=== PATIENT | male | born 1995 | race Caucasian/White ===

== ENCOUNTER 2016-12-14 07:30 | Emergency (ER) | payer BC, OTHER ==
[~2016-12-14] VITALS: Wt 90.0 kg
[~2016-12-14 07:30] MED LIST: NEOM28OI TOP; NO MED; NO MEDS TAKEN
--- NOTE | 2016-12-14 08:47 | ERD ---
ER Documentation Chief Complaint Date/Time DATE: 12/14/16 TIME: 08:43 Chief Complaint CONFUSION PER FAMILY FOR THE PAST FEW MONTHS. NO TRAUMA. A&OX4. HPI This is a 21-year-old male presenting to the emergency room brought in by mother for on and off confusion and forgetfulness for the past 3 months. Patient and his mother states that the past few months he has been having unusual situations occur such as getting ready in the morning, taking a shower and then discussing with his mother that he needs to go take a shower even though he just took a shower. Patient states that he has been dozing off sometimes. Patient denies headache, vision changes, head trauma, nausea, vomiting, syncope. Denies SI or HI ROS All systems reviewed and are negative except as per history of present illness. Medications Home Meds Active Scripts Neomycin-Bacitrac Zinc-Polymyxin (Triple Antibiotic Ointment*) 28.35 Gm Oint..gm., 1 APPLIC TOP BID, #1 TUB Prov:KEAGAN WILKERSON ELECTROENCEPHALOGRAM TECHNOLOGIST 03/21/15 Reported Medications [No Med] No Conflict Check 03/09/14 [No Meds Taken] No Conflict Check 01/21/11 Allergies Allergies: Coded Allergies: Penicillins (Verified Allergy, Mild, 03/16/14) PMhx/Soc History of Surgery: No Anesthesia Reaction: No Hx Neurological Disorder: No Hx Respiratory Disorders: No Hx Cardiac Disorders: No Hx Psychiatric Problems: No Hx Miscellaneous Medical Probl: No Hx Alcohol Use: No Hx Substance Use: No Hx Tobacco Use: No Physical Exam Vitals Vital Signs Date Time Temp Pulse Resp B/P Pulse Ox O2 Delivery O2 Flow Rate FiO2 12/14/16 07:37 98.9 76 21 131/74 99 Physical Exam GENERAL: well-developed/well-nourished, in no apparent distress, non-toxic appearing HENT: NC/AT, bilateral tympanic membrane is normal with good cone of light, nares patent, oropharynx clear without exudates EYES: Conjunctiva normal, PERRLA, EOMI, no nystagmus noted NECK: Supple, no lymphadenopathy PULM: CTA bilaterally, no rales, rhonchi, or wheezing heard CV: Normal S1S2, RRR, good capillary refill GI: Soft, non-distended, normal bowel sounds, non-tender BACK: No midline tenderness, no masses, No CVAT EXT: No clubbing, cyanosis, or edema NEURO: Alert and orientated to person, place, and time. CN II-IIX intact. Gait and coordination were normal. Hand document control coordinator strength were equal and within normal limits SKIN: Intact, normal turgor PSYCH: Normal mood and mentation, patient denied SI Procedures/MDM This is a 21-year-old male presenting to the emergency room brought in by mother for on and off confusion and forgetfulness for the past 3 months. Patient and his mother states that the past few months he has been having unusual situations occur such as getting ready in the morning, taking a shower and then discussing with his mother that he needs to go take a shower even though he just took a shower. On examination, patient had a normal neurological exam. He appeared well he is speaking clearly. He was alert and oriented 3. His examination was unremarkable. I discussed with patient and patient's mother that since this is has been going on for 3 months that it is most likely not consider an emergency. Patient is suitable to follow-up with his primary care physician and to get a referral to see a neurologist in the next couple days. A CT of the head was done in the ED and radiologist stated: Unremarkable noncontrast CT of the brain. I have considered head carcinomas, absence and other seizures, subarachnoid hemorrhage, meningitis, stroke. At this time patient is hemodynamically stable and neurovascularly intact. Discussed to follow up with a primary care physician in the next couple days for neurological referral. Return to the ER if condition worsens or not improving as expected. Patient agreed and understood this plan. Departure Diagnosis: Primary Impression: Forgetfulness Condition: Stable TONIA HOPPER PA-C Dec 14, 2016 08:47
--- NOTE | 2016-12-14 09:16 | RADRPT ---
PROCEDURE: CT brain without contrast CLINICAL INDICATION: Confusion TECHNIQUE: CT of the brain without contrast was performed on a multidetector CT scanner, with multi planar reformats. One or more of the following dose reduction techniques were used: Automated expos ure control, adjustment in mA and / or kV according to patient size, use of iterative reconstructive technique. CTDIvol = 45 mGy; DLP = 720 mGy-cm. COMPARISON: None available FINDINGS: No acute intracranial hemorrhage is identified. No extra-axial fluid collection is seen. There is no mass effect. No midline shift is identified. Ventricles and sulci are within normal limits for size and configuration. The density of the brain is within normal limits. Arias-white differentiation is preserved. Osseous structures are unremarkable. Mastoid air cells and imaged paranasal sinuses grossly clear. IMPRESSION: Unremarkable noncontrast CT of the brain. RPTAT: VV .Luis Alberto Villafuerte MD, Date Time Electronically viewed and signed by .Luis Alberto Villafuerte MD, MD on 12/14/2016 09:15 .O/
== END 2016-12-14 09:39 | disposition home or self-care (01) ==
LOC: FTE 07:30
DX: R41.3 Other amnesia (principal)
CPT/HCPCS: 70450

== ENCOUNTER 2017-04-16 03:12 | Emergency (ER) | payer BC ==
[~2017-04-16] VITALS: Ht 172.7 cm; Wt 110.0 kg
[2017-04-16 03:18] VITALS: Ht 172.7 cm; Wt 110.0 kg
[2017-04-16] MEDS ORDERED: LEVETIRACETAM 1000 MG (PMX) 100 ML IVPB STA (03:18)
[2017-04-16] MEDS ORDERED: SOD CHLORIDE 0.9% 500 ML IV STA (03:18)
--- NOTE | 2017-04-16 03:37 | RADRPT ---
PROCEDURE: CT Brain without contrast. CLINICAL INDICATION: Seizure TECHNIQUE: A CT of the brain was performed on a GE [id number] 64-slice CT scanner utilizing axial imaging from the skull base through the vertex without IV contrast. Multiplanar reformatted images were made. Images were reviewed on a PACS workstation. The CTDIvol is 43.86 mGy and the DLP is 63 0.2 mGycm. One or more of the following dose reduction techniques were used: automated exposure con trol, adjustment of the mA and/or kV according to patient size, or use of iterative reconstruction t echnique. COMPARISON: 12/04/2016 FINDINGS: There is no intracranial hemorrhage, mass effect, or midline shift. No extra-axial fluid collection is seen. The ventricles and sulci are normal in size and configuration. The density of the brain is normal, and the hall white matter differentiation appears well-preserved. The brainstem and posteri or fossa are normal. The visualized paranasal sinuses and osseous structures are grossly unremarkabl e. IMPRESSION: 1. No evidence of acute intracranial pathology. RPTAT: HCNS Physician Geraldo Date Time Electronically viewed and signed by Physician Geraldo on 04/16/2017 03:37 /
[2017-04-16 03:49] LABS: BASOPHIL # 0.1 10^3/ul (0.0-0.1); BASOPHILS % 0.5 % (0.0-2.0); EOSINOPHILS # 0.1 10^3/ul (0.0-0.5); HEMATOCRIT 47.4 % (42.0-52.0); HEMOGLOBIN 15.8 g/dl (14.0-18.0); LYMPHOCYTES # 3.7 10^3/ul (0.8-2.9); LYMPHOCYTES % 33.8 % (18.0-55.0); MEAN CORPUSCULAR HEMOGLOBIN 28.8 pg (29.0-33.0); MEAN CORPUSCULAR HGB CONC 33.3 g/dl (32.0-37.0); MEAN CORPUSCULAR VOLUME 86.5 fl (72.0-104.0); MEAN PLATELET VOLUME 10.2 fl (7.4-10.4); MONOCYTE # 0.9 10^3/ul (0.3-0.9); MONOCYTES % 8.5 % (0.0-13.0); PLATELET COUNT 261 10^3/UL (140-415); RED BLOOD COUNT 5.48 10^6/ul (4.70-6.10); RED CELL DISTRIBUTION WIDTH 12.2 % (11.5-14.5); WHITE BLOOD COUNT 11.1 10^3/ul (4.8-10.8)
[2017-04-16 04:11] LABS: CALCIUM 9.9 mg/dl (8.4-10.2); CREATININE 1.04 mg/dl (0.61-1.24); POTASSIUM 4.2 mmol/L (3.5-5.1)
[2017-04-16] MEDS ORDERED: LEVE500S8 PO (04:27)
--- NOTE | 2017-04-16 04:27 | ERD ---
ER Documentation Chief Complaint Date/Time DATE: 04/16/17 TIME: 04:26 Chief Complaint bib ra from home for new onset seizure, no medications given on field, HPI 21-year-old male with seizure. No medications given refill. Patient alert upon arrival. Second stage of the last 4 months. ROS All systems reviewed and are negative except as per history of present illness. Medications Home Meds Active Scripts Neomycin-Bacitrac Zinc-Polymyxin (Triple Antibiotic Ointment*) 28.35 Gm Oint..gm., 1 APPLIC TOP BID, #1 TUB Prov:KEAGAN WILKERSON CLINICAL LAB CLERK 03/21/15 Reported Medications [No Med] No Conflict Check 03/09/14 [No Meds Taken] No Conflict Check 01/21/11 Allergies Allergies: Coded Allergies: Penicillins (Verified Allergy, Mild, 03/16/14) PMhx/Soc Medical and Surgical Hx: pt denies Medical Hx, pt denies Surgical Hx History of Surgery: No Anesthesia Reaction: No Hx Neurological Disorder: No Hx Respiratory Disorders: No Hx Cardiac Disorders: No Hx Psychiatric Problems: No Hx Alcohol Use: Yes (2x per week) Hx Substance Use: No Hx Tobacco Use: No Smoking Status: Never smoker Physical Exam Vitals Vital Signs Date Time Temp Pulse Resp B/P Pulse Ox O2 Delivery O2 Flow Rate FiO2 04/16/17 03:18 99.5 116 18 135/81 100 Physical Exam Const: [] Head: Atraumatic Eyes: Normal Conjunctiva ENT: Normal External Ears, Nose and Mouth. Neck: Full range of motion..~ No meningismus. Resp: Clear to auscultation bilaterally Cardio: Regular rate and rhythm, no murmurs Abd: Soft, non tender, non distended. Normal bowel sounds Skin: No petechiae or rashes Back: No midline or flank tenderness Ext: No cyanosis, or edema Neur: Awake and alert Psych: Normal Mood and Affect Result Diagram: 04/16/17 0320 04/16/17 0320 Results 24 hrs Laboratory Tests Test 04/16/17 03:20 04/16/17 03:44 White Blood Count 11.110^3/ul Red Blood Count 5.4810^6/ul Hemoglobin 15.8g/dl Hematocrit 47.4% Mean Corpuscular Volume 86.5fl Mean Corpuscular Hemoglobin 28.8pg Mean Corpuscular Hemoglobin Concent 33.3g/dl Red Cell Distribution Width 12.2% Platelet Count 64804^3/UL Mean Platelet Volume 10.2fl Neutrophils % 55.0% Lymphocytes % 33.8% Monocytes % 8.5% Eosinophils % 1.0% Basophils % 0.5% Nucleated Red Blood Cells % 0.0/100WBC Neutrophils # (Manual) 6.110^3/ul Lymphocytes # 3.710^3/ul Monocytes # 0.910^3/ul Eosinophils # 0.110^3/ul Basophils # 0.110^3/ul Nucleated Red Blood Cells # 0.010^3/ul Sodium Level 139mmol/L Potassium Level 4.2mmol/L Chloride Level 99mmol/L Carbon Dioxide Level 15mmol/L Anion Gap 29 Blood Urea Nitrogen 17mg/dl Creatinine 1.04mg/dl Glucose Level 122mg/dl Calcium Level 9.9mg/dl Bedside Glucose 100mg/dL Current Medications Medications (Trade) Dose Ordered Sig/Radha Route PRN Reason Start Time Stop Time Status Last Admin Dose Admin Sodium Chloride 500 ml @ 500 mls/hr Q1H STAT IV 04/16/17 03:18 04/16/17 04:17 DC 04/16/17 03:46 Levetiracetam (Keppra 1,000mg/ 100ml (Pmx)) 100 ml @ 400 mls/hr ONCE STAT IVPB 04/16/17 03:18 04/16/17 03:32 DC 04/16/17 03:55 Procedures/MDM Medical decision-making: Patient comes in with seizure. Given the second time for months, patient was loaded with Keppra here. Patient be discharged home with Keppra. Return for worsening symptoms Departure Diagnosis: Primary Impression: Seizure disorder Condition: Stable SCOTTIE OMALLEY Apr 16, 2017 04:26
[2017-04-16 04:55] VITALS: BP 135/76; PULSE 79; RESP 18
[2017-04-16 05:14] LABS: BARBITURATES Negative (NEGATIVE); BENZODIAZEPINES Negative (NEGATIVE); CANNABINOIDS Negative (NEGATIVE); COCAINE Negative (NEGATIVE); OPIATES Negative (NEGATIVE)
== END 2017-04-16 04:55 | disposition home or self-care (01) ==
LOC: E/R 03:12
DX: G40.909 Epilepsy, unspecified, not intractable, without status epilepticus (principal)
CPT/HCPCS: 36415; 70450; 80048; 80307; 82962; 85025; 93005; 96374; J1953; J7040; Z7502